=== PATIENT | male | born 1935 | race Caucasian/White ===

== ENCOUNTER → 2017-08-29 08:26 | Outpatient (CLI) | payer MEDICARE, BC ==
[2014-03-26 07:19] VITALS: BMI 23.8
[~2017-08-29 08:26] MED LIST: BAYER CHEWABLE81 MG PO; CALCIUM 500 + D1 TAB PO; FISH OIL 1,0001 CA1 PO; LIPITOR10 MG PO; MIRALAX17 GM PO; MULTI-DAY VITAM1 TAB PO; MYRBETRIQ PO; VITAMIN B-1250 MCG PO
== END | disposition home or self-care (01) ==
LOC: D.NM 08:26
DX: C61 Malignant neoplasm of prostate (principal)

== ENCOUNTER → 2017-12-21 08:16 | Outpatient (CLI) | payer MEDICARE, BC ==
[2014-03-26 07:19] VITALS: BMI 23.8
--- NOTE | ~2017-12-21 | OP ---
PATIENT NAME: DARIN MONAHAN MEDICAL RECORD: [id number] :35 LOCATION:D.ER ADMISSION DATE: SURGEON: DEB ALEX MD DATE OF OPERATION: 12/21/2017 PROCEDURES: 1. Left heart catheterization. 2. Selective coronary angiography. 3. Left ventriculogram. 4. Vein graft angiography. 5. NDIAYE angiography. INDICATION: Chest pain compatible with angina, coronary artery disease, and previous coronary bypass graft surgery. PROCEDURE IN DETAIL: After informed consent was obtained and after detailed explanation of risks, benefits as well as alternative therapies, the patient elected to proceed with angiogram and angioplasty. The right femoral area was prepped and draped in normal sterile fashion. The right femoral artery was cannulated via modified Seldinger technique with placement of a 6-Togolese sheath. All catheters were exchanged through this sheath. FINDINGS: The left ventriculogram was performed in the standard 30-degree GARCIA view, reveals good cardiac wall motion throughout all segments. Overall ejection fraction estimated at 60%. SELECTIVE CORONARY ANGIOGRAPHY: 1. Left main is with no significant angiographic disease. 2. Left anterior descending is totally occluded. 3. Left circumflex is totally occluded. 4. Right coronary artery has 90% stenosis distally. 5. NDIAYE to the LAD is widely patent. Distal LAD is widely patent. 6. Vein graft to the ramus intermedius is widely patent. Distal ramus intermedius is widely patent. 7. Vein graft to the PDA and PLV is widely patent. Distal vessels are widely patent. OVERALL IMPRESSION: Wide patency of all his grafts, preserved left ventricular function. Continue medical management of the coronary artery disease and cardiac risk factors. TRANSINT:[id number] Voice Confirmation ID: [id number] DOCUMENT ID: [id number] DEB ALEX MD at 1800 CC: [id number] DICTATION DATE: 12/21/17 1137 SPOT WASHER: 12/21/17 1153 [place] [id number] [place] [id number]
--- NOTE | ~2017-12-21 | CN ---
PATIENT NAME:DARIN MONAHAN MEDICAL RECORD: [id number] : 35 LOCATION:D.ER ADMIT DATE: ACCOUNT: [id number] CONSULTING PHYSICIAN: DEB ALEX MD REFERRING PHYSICIAN: WALKER SANDOVAL MD DATE OF CONSULTATION: 12/21/2017 DIAGNOSES: 1. Unstable angina. 2. Coronary artery disease. 3. Status post coronary bypass graft surgery. 4. Sick sinus syndrome. 5. Status post pacemaker. 6. Hyperlipidemia. HISTORY OF PRESENT ILLNESS: This is an 82-year-old gentleman with a past history of coronary artery disease, status post 5-vessel coronary bypass graft surgery 3 years ago, concomitant pacemaker placement at that time, has been having increasing episodes of chest pain, has been seeing Dr. Bonilla. He is being considered for cardiac catheterization. His chest pain worsened dramatically last night at 6:00, he had multiple hours of chest pain overnight. His CK-MB is elevated. Troponin is within normal limits. EKG is with nonspecific ST-T abnormalities. He continues to have episodes of chest pain despite multiple sublingual nitros. PHYSICAL EXAMINATION: GENERAL APPEARANCE: Well-nourished, well-developed, appears stated age. Level of distress, comfortable. PSYCHIATRIC: Mental status, alert, normal affect. Orientation, oriented to time, place and person. EYES: Lids and conjunctiva, noninjected. No discharge, no pallor. ENT: Lips, teeth, gums, normal dentition. Oropharynx, no cyanosis, no pallor. NECK: Carotid arteries, bilateral normal upstroke, no bruits, no thrills. JUGULAR VEINS: No jugular venous pressure or distention. CERVICAL LYMPH NODES: Nontender, nonenlarged. THYROID: Not enlarged. Nontender. No nodules. LUNGS: Respiratory effort, unlabored. CHEST: Normal curvature. No thoracic deformity. No chest wall tenderness. Percussion, resonant. Auscultation, clear. No wheezes, no rales, no rhonchi. CARDIOVASCULAR: Precordial exam, nondisplaced. No heaves or pericardial thrills. Rate and rhythm, regular. Heart sounds, normal S1, normal S2. No S3, no gallop, no rub. Systolic murmur, not heard. Diastolic murmur, not heard. EXTREMITIES: No cyanosis, no edema. Peripheral pulses, full and equal in all extremities, except as noted. No bruits appreciated. ABDOMEN: Soft, nondistended. Normal aorta. No bruit. Nontender. No masses. Liver, nontender, no hepatomegaly. Spleen, nontender, no splenomegaly. MUSCULOSKELETAL: No joint tenderness. No joint swelling. No erythema. NEUROLOGICAL: Normal gait, normal strength, normal tone. SKIN: Warm and dry. REVIEW OF SYSTEMS: The patient reports easy bruising but reports no swollen glands. The patient reports no fever, no night sweats, no significant weight gain, no significant weight loss. No significant exercise tolerance. The patient reports no dry eyes, no irritation, no vision change. Patient reports no difficulty hearing and no ear pain. Patient reports no frequent nose bleeds CONSULT REPORT [id number] DARIN MONAHAN or nose and sinus problems. Patient reports on arm pain on exertion. No shortness of breath while lying down. No history of heart murmur. Patient reports no cough, no wheezing or coughing up blood. Patient reports no abdominal pain, no vomiting. Normal appetite. No diarrhea and not vomiting blood. No nausea and no constipation. Patient reports no incontinence. No difficulty urinating. No hematuria. No increased frequency. Patient reports no muscle aches. No weakness, no arthralgias, no back pain. No swelling of the extremities. Patient reports no abnormal mole, no jaundice, no rashes. Reports no loss of consciousness. No weakness and no numbness. No seizures, dizziness, or headaches. The patient reports no depression, no sleep disturbance, feeling safe in a relationship and no alcohol abuse. Patient reports on fatigue. Reports no runny nose or sinus pressure. No itching, no hives, and no frequent sneezing. OVERALL IMPRESSION: Unstable angina in a patient with multivessel coronary bypass graft surgery in the past, most likely he has recurrent hemodynamically significant coronary artery disease. We will proceed with coronary angiography. Further care depends upon findings of the angiography. TRANSINT:[id number] Voice Confirmation ID: [id number] DOCUMENT ID: [id number] DEB ALEX MD at 1800 CC: [id number] DICTATION DATE: 12/21/17 0959 BLENDING SUPERVISOR: 12/21/17 1102 [facility] [address] [place] [address]
--- NOTE | ~2017-12-21 | HEMODYNAMI ---
PATIENT:DARIN MONAHAN MEDICAL RECORD: [id number] : 35 LOCATION:[facility] ADMISSION DATE: 12/21/17 Generatedon:12/21/201711:38 Patient name: DARIN MONAHAN Patient #: [id number] SSN: : 1935 Date of study: 12/21/2017 Page: Of Hemodynamic Procedure Report Patient Data Patient Demographics Procedure consent was obtained First Name: DARIN Gender: Male Last Name: TANIYA : 1935 Patient #: [id number] Age: 82 year(s) Race: Unknown Additional ID: [id number] Contact details [address]: [address] [place] [address] State: [place] City: [place] Zip code: [address] Past Medical History Allergies: No known allergies Admission Admission Data Admission Date: 12/21/2017 Admission Time: 8:16 Procedure Procedure Types Cath Procedure Diagnostic Procedure LHC LHC w/Coronaries w/Grafts Procedure Description Procedure Date Procedure Date: 12/21/2017 Procedure Start Time: 11:24 Procedure Staff Name Function Adi Woodward MD Performing Physician Jennifer Alicea RT Monitor Tom Villarreal RT Scrub Benny Garcia RN Nurse Procedure Data Cath Procedure Fluoroscopy Diagnostic fluoroscopy Total fluoroscopy Time: 2.3 time: 2.3 min min Diagnostic fluoroscopy Total fluoroscopy dose: 120 dose: 120 mGy mGy Contrast Material Contrast Material Type Amount (ml) Isovue 300 73 Entry Location Entry Primary Successful Side Size Upsize Upsize Entry Closure Succes sful Closure Location (Fr) 1 (Fr) 2 (Fr) Remarks Device Remarks Femoral Right 5 Fr Exoseal artery Estimated blood loss: 5 ml Diagnostic catheters Device Type Used For End Catheter Placement MULTIPACK Pigtail 5 Fr LV Angiography catheter MULTIPACK JL 4.0 5Fr Left Coronary catheter Angiography MULTIPACK 3DRC 5Fr Internal mammary catheter arteriography MULTIPACK 3DRC 5Fr Right Coronary catheter Angiography MULTIPACK 3DRC 5Fr SVG Angiography catheter DIAGNOSTIC AR 2 MOD 5 Fr SVG Angiography catheter ([id number]) Procedure Complications No complications Procedure Medications Medication Administration Route Dosage Versed I.V. 1 mg Fentanyl I.V. 50 mcg Oxygen NC 2 l/min Lidocaine 2% added to field 20 Heparin Flush Bag added to field 2 bags (1000units/500ml NS) 0.9% NaCl I.V. 100 ml/hr Versed I.V. 1 mg Fentanyl I.V. 50 mcg Versed I.V. 0.5 mg Hemodynamics Rest Pre Cath Intra NCS Post Cath Vital Signs Time Heart Resp SPO2 etCO2 NIBP (mmHg) Rhythm Pain Sedation Rate (ipm) (%) (mmHg) Status Level (bpm) 11:16:24 77 30 98 21.8 142/104(129) NSR 0 (11) 10(A) , No pain 11:20:32 69 21 97 32.3 129/78(103) NSR 0 (11) 10(A) , No pain 11:24:37 71 15 93 1.5 112/70(98) NSR 0 (11) 9(A) , No pain 11:28:45 69 16 95 36.1 105/65(91) NSR 0 (11) 9(A) , No pain 11:33:28 74 19 95 20.3 115/64(91) NSR 0 (11) 9(A) , No pain 11:37:32 73 16 96 0 120/74(104) NSR 0 (11) 10(A) , No pain Medications Time Medication Route Dose Verified Delivered Reason Notes Effe ctiveness by by 11:15:01 Oxygen NC 2 Adi Buffie used for l/min Crissy Garcia RN procedure 11:16:12 Lidocaine 2% added 20ml Adi Adi for local to vial Crissy Woodward MD anesthetic field 11:16:20 Heparin Flush added 2 Adi Adi used for Bag to bags Crissy Woodward MD procedure (1000units/500ml field NS) 11:16:28 0.9% NaCl I.V. 100 Adi Buffie Per ml/hr Crissy Garcia RN physician 11:18:38 Versed I.V. 1 mg Adi Buffie used for Crissy Garcia RN procedure 11:18:44 Fentanyl I.V. 50 Adi Kandiie for mcg Crissy Garcia RN sedation 11:22:34 Versed I.V. 0.5 Adi Zapata used for mg Crissy Garcia RN procedure 11:27:20 Versed I.V. 1 mg Adi Zapata used for Crissy Garcia RN procedure 11:27:24 Fentanyl I.V. 50 Adi Zapata for mcg Crissy Garcia RN sedation Procedure Log Time Note 10:57:22 Tom Phil RT(R) (CV) sent for patient. Start room use. 10:57:22 Time tracking: Regular hours 10:57:26 Plan of Care:Hemodynamics will remain stable., Cardiac rhythm will remain stable., Comfort level will be maintained., Respiratory function will remain adequate., Patient/ family verbilizes understanding of procedure., Procedure tolerated without complication., Recovers from procedure without complications.. 11:06:51 Patient received from ED to CCL 3 Alert and oriented. Tansferred to table in Supine position. 11:06:52 Warm blankets applied, and charly hugger turned on for patient comfort. 11:06:53 Correct patient and procedure confirmed by team. 11:06:54 Signed procedure consent form obtained from patient. 11:06:54 ECG and BP/O2 sat monitors applied to patient. 11:06:55 Full Disclosure recording started 11:15:01 Oxygen 2 l/min NC was administered by Benny Garcia RN; used for procedure; 11:15:20 Vital chart was started 11:15:25 Rhythm: sinus rhythm 11:15:33 H&P Date Dictated: 12/21/2017 ER History on chart.. 11:15:36 Pre-procedure instructions explained to patient. 11:15:37 Pre-op teaching completed and patient verbalized understanding. 11:15:38 Family in waiting room. 11:15:40 Patient NPO since Midnight. 11:15:47 Patient allergic to No known allergies 11:16:01 Is the patient allergic to Iodine/contrast media? No. 11:16:02 Is patient on blood thinner?Yes 11:16:04 ACC The patient was administered the following blood thiners within the last 24 hours: ACCPlavix 11:16:06 Patient diabetic? No. 11:16:10 Previous problem with sedation/anesthesia? No ? 11:16:11 Snore? Yes 11:16:12 Lidocaine 2% 20ml vial added to field was administered by Adi Woodward MD; for local anesthetic; 11:16:12 Sleep apnea? No 11:16:14 Deviated septum? No 11:16:15 Sticks out tongue? Yes 11:16:15 Opens mouth fully? Yes 11:16:18 Airway obstruction? No ? 11:16:20 Heparin Flush Bag (1000units/500ml NS) 2 bags added to field was administered by Adi Woodward MD; used for procedure; 11:16:20 Dentures? No ? 11:16:28 0.9% NaCl 100 ml/hr I.V. was administered by Benny Garcia RN; Per physician; 11:16:28 Pre procedure: right dorsailis pedis pulse 2+ Normal; easily identifiable; not easily obliterated 11:16:30 Patient pain scale 0/10 ?. 11:16:35 IV patent on arrival in left hand with 0.9% NaCl at [facility]. 11:16:38 Lab results completed and on chart. 11:16:41 Right groin area was prepped with chlora-prep and draped in sterile fashion 11:16:42 Alarms reviewed by R. N. 11:16:43 Sharps counted by scrub and verified by R.N. 11:16:48 Use device set Femoral Dx 11:16:51 ACIST Syringe (29172) opened to sterile field. 11:16:53 Bag Decanter (2002S) opened to sterile field. 11:16:54 Medline Cath Pack ([id number]) opened to sterile field. 11:16:55 SHEATH 5FR [place] (JFZ946) opened to sterile field. 11:16:57 DIAGNOSTIC WIRE .035 260cm J wire (580751) opened to sterile field. 11:16:58 ACIST Hand Control (24154) opened to sterile field. 11:17:01 ACIST Manifold (87788) opened to sterile field. 11:17:17 IV Extension Set opened to sterile field. 11:17:19 Tegaderm 4 x 4 (1626W) opened to sterile field. 11:17:21 DIAGNOSTIC Multipack 5Fr catheter set ([id number]) opened to sterile field. 11:17:22 PERCUTANEOUS ENTRY 19GA needle opened to sterile field. 11:17:29 Final Timeout: patient, procedure, and site verified with staff and physician. All members of the team are in agreement. 11:17:31 Right groin site verified by team. 11:17:33 Physical assessment completed. ASA score P 2 - A patient with mild systemic disease as per Adi Woodward MD. 11:17:37 Sedation plan: IV Moderate Sedation Medication:Versed, Fentanyl 11:18:38 Versed 1 mg I.V. was administered by Benny Garcia RN; used for procedure; 11:18:44 Fentanyl 50 mcg I.V. was administered by Benny Garcia RN; for sedation; 11::34 Versed 0.5 mg I.V. was administered by Benny Garcia RN; used for procedure; 11:24:37 Zero performed for pressure channel P1 11:24:54 Procedure started. 11:24:57 Local anesthetic to right femoral artery with Lidocaine 2% by Adi Woodward MD.INITIAL ACCESS ONLY 11:25:33 A 5 Fr sheath was inserted into the Right Femoral artery 11:25:53 A MULTIPACK Pigtail 5 Fr catheter was advanced over the wire and used for LV Angiography. 11:26:21 LV gram done using GARCIA 11:26:23 LV hemodynamics recorded. 11::26 Injector settings: Ml/sec: 10, Volume: 20, 11:26:30 EF : 60 % 11:26:41 Catheter removed. 11:26:50 A MULTIPACK JL 4.0 5Fr catheter was advanced over the wire and used for Left Coronary Angiography. 11:27:20 Versed 1 mg I.V. was administered by Benny Garcia RN; used for procedure; 11::24 Fentanyl 50 mcg I.V. was administered by Benny Garcia RN; for sedation; 11:27:25 Catheter removed. 11:28:40 A MULTIPACK 3DRC 5Fr catheter was advanced over the wire and used for Internal mammary arteriography. TO LAD 11:29:12 A MULTIPACK 3DRC 5Fr catheter was advanced over the wire and used for Right Coronary Angiography. 11:29:51 A MULTIPACK 3DRC 5Fr catheter was advanced over the wire and used for SVG Angiography.TO CIRC 11:30:14 Catheter removed. 11:31:20 A DIAGNOSTIC AR 2 MOD 5 Fr catheter ([id number]) was advanced over the wire and used for SVG Angiography. JUMP TO OM PLV 11:32:06 Catheter removed. 11:32:13 Sheath removed intact; hemostasis achieved with Exoseal to the Right Femoral artery. 11:32:22 EXOSEAL 5Fr (EX500) opened to sterile field. 11:32:25 Procedure ended.(Physican Out) 11:32:42 Fluoroscopy time 02.30 minutes. 11:32:50 Fluoroscopy dose: 120 mGy 11:32:50 Flurop Dose total: 120 11:33:27 Contrast amount:Isovue 300 73ml. 11:33:28 Sharps counted by scrub and verified by R.N. 11:33:30 Insertion/operative site no bleeding no hematoma. 11:33:33 Post-op/insertion site Right Femoral artery dressed using a 4 x 4 and Tegaderm. 11:33:36 Post right femoral artery:stable, clean and dry 11:33:37 Post Procedure Pulses reassessed and unchanged 11:33:39 Post-procedure physical assessment completed. ASA score P 2 - A patient with mild systemic disease as per Adi Woodward MD. 11:33:41 Post procedure rhythm: unchanged. 11:33:45 Estimated blood loss: 5 ml 11:33:46 Post procedure instruction explained to patient.Patient verbalizes understanding. 11:33:46 Patient needs reinforcement of post procedure teaching. 11:33:53 Procedure and supply charges have been captured, reviewed, submitted and are correct. 11:34:07 Procedure type changed to Cath procedure, Diagnostic procedure, LHC, LHC w/Coronaries w/Grafts 11:35:02 Procedure Complication : No complications 11:35:04 See physician's report for complete and final results. 11:35:07 Report given to Pre/Post Procedure Room. 11:36:38 Patient transfered to Pre/Post Procedure Room with Stretcher. 11:38:29 Vital chart was stopped 11:38:36 End room use (Document Last) Device Usage Item Name Manufacture Quantity Catalog Hospital Part Current Minimal Lot# / Number Charge Number Stock Stock Serial# Code [facility] Acist 1 11436 244343 454465 114824 20 Syringe [email or web address] (64032) Systems Inc Bag Decanter Microtek 1 621830 33710 740843 5 () Medical Inc. Medline Cath Cardinal 1 [id number] 973252 53923 258770 5 Pack Health ([id number]) SHEATH 5FR Terumo 1 [id number] 115790 924770 494746 40 [place] Bottom (TFB999) DIAGNOSTIC St Piyush 1 292676 310022 916975 338755 30 WIRE .035 260cm J wire (128055) ACIST Hand Acist 1 01182 484254 372908 803039 5 Control Medical (50132) Systems Inc ACIST Acist 1 12594 759426 683519 533862 5 Manifold Medical (61912) Systems Inc IV Extension Hospira 1 90403-07 774114 83856 241669 5 Set Tegaderm 4 x 3M 1 1626W 082075 100879 164345 5 4 (1626W) DIAGNOSTIC Cardinal 1 WS0543 025111 69414 378564 30 Multipack Health 5Fr catheter set (EE2851) PERCUTANEOUS Cook Medical 1 U15582 505448 910753 5 ENTRY 19GA needle MULTIPACK Cardinal 1 103418 5 Pigtail 5 Fr Health catheter MULTIPACK JL Cardinal 1 694950 5 4.0 5Fr Health catheter MULTIPACK Cardinal 1 012010 5 3DRC 5Fr Health catheter DIAGNOSTIC Cardinal 1 [id number] 060589 805843 344816 20 AR 2 MOD 5 Health Fr catheter (421470T) EXOSEAL 5Fr Cardinal 1 EX500 671336 258660 196526 10 (EX500) Health Signature Audit [place] Stage Time Signature Unsigned Intra-Procedure 12/21/2017 Jennifer 11:38:52 AM Counts RT(R) Signatures Monitor : Jennifer Signature : Counts RT Date : Time : [facility] [address] [place] [address]
[2017-12-21 08:53] LABS: BASOPHILS 0.1 % (0-2); EOSINOPHILS 0.1 % (0-7); HEMATOCRIT 40.3 % (42.0-54.0); HEMOGLOBIN 13.7 g/dL (13.5-17.5); IMMATURE GRANULOCYTES 0.2 % (0-5); MCH 32.9 pg (26.0-34.0); MCV 96.9 fL (80.0-100.0); MEAN PLATELET VOLUME 9.2 fL (7.4-10.4); MONOCYTES 8.7 % (2-11); NEUTROPHILS 79.9 % (40-80); PLATELET COUNT 129 10x3/uL (130-400); RBC 4.16 10x6/uL (4.20-6.10); RDW 13.8 % (11.5-14.5); WBC 9.5 10x3/uL (4.8-10.8)
[2017-12-21 09:00] LABS: ALKALINE PHOSPHATASE 90 U/L (46-116); ALT (SGPT) 56 U/L (10-68); BILIRUBIN - TOTAL 0.72 mg/dL (0.2-1.3); CALC OSMOLALITY 275 mosm/kg (275-300); CALCIUM 9.5 mg/dL (8.5-10.1); CARBON DIOXIDE 28.6 mmol/L (21.0-32.0); CHLORIDE - SERUM 100 mmol/L (98-107); CREATININE - SERUM 1.3 mg/dL (0.6-1.3); GLUCOSE 130 mg/dL (74-106); POTASSIUM - SERUM 4.3 mmol/L (3.5-5.1); PROTEIN - SERUM 7.3 g/dL (6.4-8.2); SODIUM 136 mmol/L (136-145); UREA NITROGEN 17 mg/dL (7-18); eGFR NON AFRICAN AMERICAN 56 mL/min (90-120)
[2017-12-21 09:11] LABS: CHOL - HDL RATIO 1.6 ratio (2.3-4.9); CHOLESTEROL, TOTAL 140 mg/dL (0-200); CKMB 26.6 U/L (0.0-3.6); CREATINE KINASE 713 UL (21-232); HDL CHOLESTEROL 87 mg/dL (32-96); LDL CHOLESTEROL 47 mg/dL (0-100); LDL-HDL RATIO 0.5 ratio (1.5-3.5); TRIGLYCERIDE 33 mg/dL (30-200)
[2017-12-21 09:31] LABS: TROPONIN-I < 0.017 ng/mL (0.000-0.060)
== END | disposition home or self-care (01) ==
LOC: D.CATH 08:16 → D.ER 08:16 → EDSTATUS 12:30
PROVIDERS: Emergency Medicine
DX: I25.110 Atherosclerotic heart disease of native coronary artery with unstable angina pectoris (principal); Z95.1 Presence of aortocoronary bypass graft; E78.5 Hyperlipidemia, unspecified; Z95.0 Presence of cardiac pacemaker; I49.5 Sick sinus syndrome; Z01.812 Encounter for preprocedural laboratory examination

== ENCOUNTER → 2018-02-21 09:45 | Outpatient (CLI) | payer MEDICARE, BC ==
[2014-03-26 07:19] VITALS: BMI 23.8
== END | disposition home or self-care (01) ==
LOC: D.NM 02-18 08:15 → D.CT 02-18 09:00 → D.NM 09:45
DX: R97.20 Elevated prostate specific antigen [PSA] (principal); C61 Malignant neoplasm of prostate

== ENCOUNTER 2018-05-30 08:01 | Inpatient (IN) | payer MEDICARE, BC ==
[~2018-05-30] VITALS: Ht 172.7 cm; Wt 68.0 kg
[2018-05-30] MEDS ORDERED: BETAPACE 80 MG80 MG PO (08:08)
[2018-05-30] MEDS ORDERED: IMODIUM2 MG PO (08:08)
[2018-05-30] MEDS ORDERED: ZOFRAN4 MG PO (08:08)
[2018-05-30 08:30] VITALS: BP 123/69
[2018-05-30 08:30] LABS: HEMATOCRIT 36.6 % (42.0-54.0); HEMOGLOBIN 12.6 g/dL (13.5-17.5); MCH 32.4 pg (26.0-34.0); MCHC 34.4 g/dL (31.0-37.0); MCV 94.1 fL (80.0-100.0); MEAN PLATELET VOLUME 9.6 fL (7.4-10.4); PLATELET COUNT 126 10x3/uL (130-400); RBC 3.89 10x6/uL (4.20-6.10)
[2018-05-30 08:45] LABS: ALBUMIN 2.9 g/dL (3.4-5.0); ALKALINE PHOSPHATASE 106 U/L (46-116); ALT (SGPT) 31 U/L (10-68); CALC OSMOLALITY 264 mosm/kg (275-300); CALCIUM 8.5 mg/dL (8.5-10.1); CARBON DIOXIDE 25.8 mmol/L (21.0-32.0); CHLORIDE - SERUM 98 mmol/L (98-107); GLUCOSE 118 mg/dL (74-106); LIPASE 127 U/L (73-393); POTASSIUM - SERUM 4.5 mmol/L (3.5-5.1); PROTEIN - SERUM 6.7 g/dL (6.4-8.2); SODIUM 131 mmol/L (136-145); UREA NITROGEN 16 mg/dL (7-18); eGFR NON AFRICAN AMERICAN 76 mL/min (90-120)
[2018-05-30 09:03] LABS: WBC 0.9 10x3/uL (4.8-10.8)
[2018-05-30 09:05] LABS: LYMPHOCYTES 78 % (15-50); MONOCYTES 16 % (2-11); NEUTROPHILS 2 % (40-80); PLATELET ESTIMATE DECREASED; ROULEAUX OCC
[2018-05-30 11:25] VITALS: BP 120/66; BMI 22.8
[2018-05-30 11:50] LABS: APPEARANCE CLEAR (CLEAR); COLOR YELLOW (YELLOW); SPECIFIC GRAVITY 1.005 (1.005-1.020)
[2018-05-30 11:51] LABS: BILIRUBIN NEGATIVE (NEGATIVE); GLUCOSE NEGATIVE (NEGATIVE); KETONE NEGATIVE (NEGATIVE); NITRITE NEGATIVE (NEGATIVE); PROTEIN NEGATIVE (NEGATIVE); UROBILINOGEN NORMAL (NORMAL)
[2018-05-30 19:40] VITALS: BP 105/63
[2018-05-30 23:35] VITALS: BP 91/55
[2018-05-31 04:12] VITALS: BP 108/63
[2018-05-31 06:21] LABS: BASOPHILS 0 % (0-2); HEMATOCRIT 31.3 % (42.0-54.0); HEMOGLOBIN 10.7 g/dL (13.5-17.5); MCH 32.6 pg (26.0-34.0); MCHC 34.2 g/dL (31.0-37.0); MCV 95.4 fL (80.0-100.0); MEAN PLATELET VOLUME 9.6 fL (7.4-10.4); PLATELET COUNT 118 10x3/uL (130-400); RBC 3.28 10x6/uL (4.20-6.10); RDW 13.2 % (11.5-14.5)
[2018-05-31 08:04] LABS: ALBUMIN 2.2 g/dL (3.4-5.0); ALKALINE PHOSPHATASE 87 U/L (46-116); ALT (SGPT) 23 U/L (10-68); BILIRUBIN - TOTAL 0.62 mg/dL (0.2-1.3); CALC OSMOLALITY 273 mosm/kg (275-300); CALCIUM 7.4 mg/dL (8.5-10.1); CHLORIDE - SERUM 105 mmol/L (98-107); GLUCOSE 96 mg/dL (74-106); POTASSIUM - SERUM 4.2 mmol/L (3.5-5.1); PROTEIN - SERUM 5.3 g/dL (6.4-8.2); SODIUM 137 mmol/L (136-145); UREA NITROGEN 12 mg/dL (7-18); eGFR NON AFRICAN AMERICAN 76 mL/min (90-120)
[2018-05-31 09:36] VITALS: BP 107/55
[2018-05-31 13:15] VITALS: Ht 172.7 cm; Wt 68.0 kg
[2018-05-31 15:03] VITALS: BP 103/54
[2018-05-31 18:07] VITALS: BP 104/56
[2018-05-31 21:17] VITALS: BP 111/57
[2018-06-01 04:50] VITALS: BP 128/54
[2018-06-01 06:53] LABS: BASOPHILS 0.7 % (0-2); EOSINOPHILS 0.7 % (0-7); HEMATOCRIT 32.8 % (42.0-54.0); IMMATURE GRANULOCYTES 0.9 % (0-5); LYMPHOCYTES 29.1 % (15-50); MCH 32.1 pg (26.0-34.0); MCHC 33.5 g/dL (31.0-37.0); MCV 95.6 fL (80.0-100.0); MEAN PLATELET VOLUME 9.2 fL (7.4-10.4); MONOCYTES 26.3 % (2-11); NEUTROPHILS 42.3 % (40-80); PLATELET COUNT 127 10x3/uL (130-400); RBC 3.43 10x6/uL (4.20-6.10); RDW 13.4 % (11.5-14.5)
[2018-06-01 06:55] LABS: WBC 4.3 10x3/uL (4.8-10.8)
[2018-06-01 07:20] LABS: ALBUMIN 2.3 g/dL (3.4-5.0); ALKALINE PHOSPHATASE 86 U/L (46-116); BILIRUBIN - TOTAL 0.61 mg/dL (0.2-1.3); CALC OSMOLALITY 274 mosm/kg (275-300); CALCIUM 7.5 mg/dL (8.5-10.1); CARBON DIOXIDE 25.9 mmol/L (21.0-32.0); CHLORIDE - SERUM 107 mmol/L (98-107); CREATININE - SERUM 0.9 mg/dL (0.6-1.3); GLUCOSE 92 mg/dL (74-106); POTASSIUM - SERUM 4.3 mmol/L (3.5-5.1); PROTEIN - SERUM 5.4 g/dL (6.4-8.2); SODIUM 138 mmol/L (136-145); UREA NITROGEN 10 mg/dL (7-18); eGFR NON AFRICAN AMERICAN 85 mL/min (90-120)
[2018-06-01 07:25] LABS: ALT (SGPT) 29 U/L (10-68)
[2018-06-01 09:27] VITALS: BP 111/54
[2018-06-01 14:07] VITALS: BP 108/51
[2018-06-01 17:02] VITALS: BP 115/61
[2018-06-02 04:06] VITALS: BP 135/62
[2018-06-02 06:25] LABS: BASOPHILS 0.6 % (0-2); EOSINOPHILS 0.2 % (0-7); HEMATOCRIT 32.4 % (42.0-54.0); HEMOGLOBIN 10.9 g/dL (13.5-17.5); IMMATURE GRANULOCYTES 20.1 % (0-5); LYMPHOCYTES 10.8 % (15-50); MCH 32.1 pg (26.0-34.0); MCHC 33.6 g/dL (31.0-37.0); MCV 95.3 fL (80.0-100.0); MEAN PLATELET VOLUME 9.3 fL (7.4-10.4); MONOCYTES 4.2 % (2-11); NEUTROPHILS 64.1 % (40-80); PLATELET COUNT 148 10x3/uL (130-400); RDW 13.6 % (11.5-14.5); WBC 14.4 10x3/uL (4.8-10.8)
[2018-06-02 07:41] LABS: ALBUMIN 2.2 g/dL (3.4-5.0); ALKALINE PHOSPHATASE 92 U/L (46-116); BILIRUBIN - TOTAL 0.42 mg/dL (0.2-1.3); CALC OSMOLALITY 276 mosm/kg (275-300); CALCIUM 7.1 mg/dL (8.5-10.1); CARBON DIOXIDE 24.3 mmol/L (21.0-32.0); CHLORIDE - SERUM 108 mmol/L (98-107); CREATININE - SERUM 0.9 mg/dL (0.6-1.3); GLUCOSE 101 mg/dL (74-106); POTASSIUM - SERUM 4.2 mmol/L (3.5-5.1); PROTEIN - SERUM 5.3 g/dL (6.4-8.2); SODIUM 140 mmol/L (136-145); UREA NITROGEN 8 mg/dL (7-18); eGFR NON AFRICAN AMERICAN 85 mL/min (90-120)
[2018-06-02 07:42] LABS: ALT (SGPT) 38 U/L (10-68)
[2018-06-02 08:25] VITALS: BP 161/78
[2018-06-02 11:37] VITALS: BP 140/72
[2018-06-02] MEDS ORDERED: NYSTATIN ORAL SU5 ML PO (14:22)
[2018-06-02] MEDS ORDERED: ATIVAN0.5 MG PO (14:23)
[2018-06-02] MEDS ORDERED: PROTONIX40 MG PO (14:23)
[2018-06-02] MEDS ORDERED: DESONIDE15 GM TOPICAL (14:29)
== END 2018-06-02 15:00 | disposition home or self-care (01) | DRG 809 ==
LOC: D.ER 08:01 → D.MS 09:25 → D.SDCHOLD 13:50 → D.MS 13:58
PROVIDERS: Emergency Medicine; Legal Medicine
DX: D70.1 Agranulocytosis secondary to cancer chemotherapy (principal); C79.9 Secondary malignant neoplasm of unspecified site; B37.0 Candidal stomatitis; C61 Malignant neoplasm of prostate; T45.1X5A Adverse effect of antineoplastic and immunosuppressive drugs, initial encounter; E86.0 Dehydration; K21.9 Gastro-esophageal reflux disease without esophagitis; L27.0 Generalized skin eruption due to drugs and medicaments taken internally; T36.1X5A Adverse effect of cephalosporins and other beta-lactam antibiotics, initial encounter; Y92.239 Unspecified place in hospital as the place of occurrence of the external cause; R19.7 Diarrhea, unspecified; Z95.0 Presence of cardiac pacemaker; F41.9 Anxiety disorder, unspecified

== ENCOUNTER 2018-08-01 01:49 | Observation (INO) | payer MEDICARE, BC ==
[~2018-08-01] VITALS: Ht 172.7 cm; Wt 68.2 kg
[2018-08-01] VITALS (16 sets, daily range): BP systolic 115–150; BP diastolic 60–82; BMI 22.8
[~2018-08-01 01:49] MED LIST changes: +ATIVAN0.5 MG PO; +BETAPACE 80 MG80 MG PO; +DESONIDE15 GM TOPICAL; +IMODIUM2 MG PO; +NYSTATIN ORAL SU5 ML PO; +PROTONIX40 MG PO; +ZOFRAN4 MG PO
[2018-08-01] MEDS ORDERED: TIROSINT50 MCG PO (02:07)
[2018-08-01] MEDS ORDERED: CELEXA20 MG PO (02:08)
[2018-08-01 02:57] LABS: APPEARANCE CLEAR (CLEAR); BILIRUBIN NEGATIVE (NEGATIVE); COLOR YELLOW (YELLOW); GLUCOSE NEGATIVE (NEGATIVE); KETONE NEGATIVE (NEGATIVE); NITRITE NEGATIVE (NEGATIVE); PROTEIN NEGATIVE (NEGATIVE); UROBILINOGEN NORMAL (NORMAL)
[2018-08-01 03:05] LABS: HEMATOCRIT 32.3 % (42.0-54.0); HEMOGLOBIN 10.7 g/dL (13.5-17.5); MCH 32.5 pg (26.0-34.0); MCHC 33.1 g/dL (31.0-37.0); MCV 98.2 fL (80.0-100.0); MEAN PLATELET VOLUME 9.5 fL (7.4-10.4); PLATELET COUNT 177 10x3/uL (130-400); RBC 3.29 10x6/uL (4.20-6.10); RDW 15.1 % (11.5-14.5); WBC 24.6 10x3/uL (4.8-10.8)
[2018-08-01 03:15] LABS: ALBUMIN 3.1 g/dL (3.4-5.0); ANION GAP 12.2 mmol/L (8-16); BILIRUBIN - TOTAL 0.66 mg/dL (0.2-1.3); CALCIUM 8.8 mg/dL (8.5-10.1); CARBON DIOXIDE 25.4 mmol/L (21.0-32.0); CREATININE - SERUM 1.2 mg/dL (0.6-1.3); POTASSIUM - SERUM 4.6 mmol/L (3.5-5.1); PROTEIN - SERUM 6.3 g/dL (6.4-8.2)
[2018-08-01 03:24] LABS: THYROID STIMULATING HORMONE 2.36 uIU/mL (0.36-3.74)
[2018-08-01 03:43] LABS: EOSINOPHILS 1 % (0-7); LYMPHOCYTES 14 % (15-50); MONOCYTES 6 % (2-11); NEUTROPHILS 73 % (40-80); PLATELET ESTIMATE DECREASED
[2018-08-01] MEDS ORDERED: GLUCOPHAGE500 MG PO (07:10)
[2018-08-01 08:55] LABS: % SATURATION 19 % (15-55); IRON 39 ug/dl (35-150); TOTAL IRON BIND CAPACITY 199 ug/dl (260-445); UNSAT IRON BIND CAPACITY 160 ug/dl (150-375)
[2018-08-02 00:01] VITALS: BP 116/61; Ht 172.7 cm; Wt 68.2 kg
[2018-08-02 04:44] VITALS: BP 105/49
[2018-08-02 05:39] LABS: BASOPHILS 0.4 % (0-2); EOSINOPHILS 0.3 % (0-7); HEMATOCRIT 29.8 % (42.0-54.0); HEMOGLOBIN 9.8 g/dL (13.5-17.5); IMMATURE GRANULOCYTES 14.8 % (0-5); LYMPHOCYTES 7.1 % (15-50); MCH 32.8 pg (26.0-34.0); MCHC 32.9 g/dL (31.0-37.0); MCV 99.7 fL (80.0-100.0); MEAN PLATELET VOLUME 9.3 fL (7.4-10.4); MONOCYTES 8.2 % (2-11); NEUTROPHILS 69.2 % (40-80); PLATELET COUNT 171 10x3/uL (130-400); RBC 2.99 10x6/uL (4.20-6.10); WBC 25.6 10x3/uL (4.8-10.8)
[2018-08-02 06:13] LABS: ALBUMIN 2.5 g/dL (3.4-5.0); ALKALINE PHOSPHATASE 96 U/L (46-116); ALT (SGPT) 18 U/L (10-68); BILIRUBIN - TOTAL 0.39 mg/dL (0.2-1.3); CALCIUM 7.5 mg/dL (8.5-10.1); CARBON DIOXIDE 22.5 mmol/L (21.0-32.0); CHLORIDE - SERUM 106 mmol/L (98-107); CREATININE - SERUM 0.9 mg/dL (0.6-1.3); GLUCOSE 99 mg/dL (74-106); PROTEIN - SERUM 5.2 g/dL (6.4-8.2); SODIUM 137 mmol/L (136-145); eGFR NON AFRICAN AMERICAN 85 mL/min (90-120)
[2018-08-02 06:18] LABS: CALC OSMOLALITY 270 mosm/kg (275-300); UREA NITROGEN 4 mg/dL (7-18)
[2018-08-02 08:22] VITALS: BP 104/56
[2018-08-02 09:21] LABS: FOLATE (FOLIC ACID) - SERUM 17.3 ng/mL (>3.0)
== END 2018-08-02 11:58 | disposition home or self-care (01) ==
LOC: D.ER 01:49 → D.EDHOLD 04:42 → OBSVTIME 04:42 → D.MS 04:42
PROVIDERS: Family Medicine; Legal Medicine
DX: R11.2 Nausea with vomiting, unspecified (principal); E86.0 Dehydration; D64.9 Anemia, unspecified; R53.1 Weakness; C61 Malignant neoplasm of prostate; C79.51 Secondary malignant neoplasm of bone

== ENCOUNTER → 2019-11-21 11:20 | Outpatient (CLI) | payer MEDICARE, BC ==
[2018-08-02 00:01] VITALS: BMI 22.8
[~2019-11-21 11:20] MED LIST changes: +CELEXA20 MG PO; +GLUCOPHAGE500 MG PO; +TIROSINT50 MCG PO
== END | disposition home or self-care (01) ==
LOC: D.CT 11:20
PROVIDERS: ATTEND Legal Medicine
DX: C61 Malignant neoplasm of prostate (principal)

== ENCOUNTER → 2019-11-24 10:53 | Outpatient (CLI) | payer MEDICARE, BC ==
[2018-08-02 00:01] VITALS: BMI 22.8
== END | disposition home or self-care (01) ==
LOC: D.NM 10:30
PROVIDERS: ATTEND Legal Medicine
DX: C61 Malignant neoplasm of prostate (principal)

== ENCOUNTER → 2019-11-27 08:52 | Outpatient (CLI) | payer MEDICARE, BC ==
[2018-08-02 00:01] VITALS: BMI 22.8
== END | disposition home or self-care (01) ==
LOC: D.NM 08:52
PROVIDERS: ATTEND Legal Medicine
DX: C61 Malignant neoplasm of prostate (principal)

== ENCOUNTER → 2020-04-14 09:25 | Outpatient (CLI) | payer MEDICARE, BC ==
[2018-08-02 00:01] VITALS: BMI 22.8
[2020-04-14 16:28] LABS: HEMATOCRIT 35.4 % (42.0-54.0); HEMOGLOBIN 11.4 g/dL (13.5-17.5); MCH 33.3 pg (26.0-34.0); MCHC 32.2 g/dL (31.0-37.0); MCV 103.5 fL (80.0-100.0); MEAN PLATELET VOLUME 8.8 fL (7.4-10.4); PLATELET COUNT 184 10x3/uL (130-400); RBC 3.42 10x6/uL (4.20-6.10); RDW 15.7 % (11.5-14.5); WBC 5.2 10x3/uL (4.8-10.8)
[2020-04-14 16:41] LABS: ALBUMIN 3.7 g/dL (3.4-5.0); ANION GAP 14.5 mmol/L (8-16); BILIRUBIN - TOTAL 0.52 mg/dL (0.2-1.3); CALCIUM 9.6 mg/dL (8.5-10.1); CARBON DIOXIDE 23.2 mmol/L (21.0-32.0); CREATININE - SERUM 1.9 mg/dL (0.6-1.3); POTASSIUM - SERUM 4.7 mmol/L (3.5-5.1); PROTEIN - SERUM 6.4 g/dL (6.4-8.2)
[2020-04-14 17:25] LABS: EOSINOPHILS 3 % (0-7); LYMPHOCYTES 27 % (15-50); MONOCYTES 2 % (2-11); NEUTROPHILS 68 % (40-80); PLATELET ESTIMATE NORMAL
== END | disposition home or self-care (01) ==
LOC: D.LABREF 09:25
PROVIDERS: ATTEND Legal Medicine
DX: D72.9 Disorder of white blood cells, unspecified (principal); D70.1 Agranulocytosis secondary to cancer chemotherapy

== ENCOUNTER → 2020-05-10 10:54 | Outpatient (CLI) | payer MEDICARE, BC ==
[2018-08-02 00:01] VITALS: BMI 22.8
== END | disposition home or self-care (01) ==
LOC: D.HCCECHO 10:54
PROVIDERS: ATTEND Internal Medicine Cardiovascular Disease
DX: I25.10 Atherosclerotic heart disease of native coronary artery without angina pectoris (principal)